=== PATIENT | male | born 1945 | race Caucasian/White ===

== ENCOUNTER 2020-02-09 11:15 | Inpatient (IN) | payer OTHER ==
--- NOTE | 2020-02-09 11:46 | RAD ---
Exam:3 views left foot HISTORY: Pain. First digit is turning black. COMPARISON: None FINDINGS: Lisfranc alignment is maintained. Joint spaces are preserved. No fracture, cortical irregul arity or radiopaque foreign body. Evaluation of the soft tissues is limited due to overlying sock with radiopaque densities. There is soft tissue swelling. No obvious subcutaneous emphysema. IMPRESSION: 1. No fracture 2. No radiographic evidence of osteomyelitis. 3. There is soft tissue swelling in the midfoot. Correlate for cellulitis.
[2020-02-09 12:06] LABS: #Eosinphils 0.1 thou/uL (0.0-0.7); #Lymphocytes 1.4 thou/uL (1.20-3.40); #Monocytes 0.8 thou/uL (0.11-0.59); %Basophils 0.3 % (0.0-1.0); %Eosinophils 1.4 % (0.0-10.0); %Lymphocytes 16.8 % (21.0-51.0); %Monocytes 9.6 % (0.0-10.0); %Neutrophils 71.8 % (42.0-75.0); Hemoglobin 9.6 g/dL (14.0-18.0); Mean Corpuscular HGB CONC 32.4 g/dL (32.0-36.0); Mean Corpuscular Volume 92.5 fL (78.0-98.0); Mean Platelet Volume 8.3 fL (7.4-10.4); Platelet Count 181 thou/uL (130-400); RBC Distribution Width 14.4 % (11.5-14.5); White Blood Cell (WBC) Count 8.4 thou/uL (4.8-10.8)
[2020-02-09 12:28] LABS: ALT (SGPT) 18 U/L (8-55); AST (SGOT) 18 U/L (5-34); Albumin 3.2 g/dL (3.4-4.8); Alkaline Phosphatase 73 U/L (40-110); Anion Gap 14 mmol/L (10-20); BUN (Urea Nitrogen) 51 mg/dL (8.4-25.7); Bilirubin, Total 0.6 mg/dL (0.2-1.2); Calc. Creatinine Clearance 0 mL/min (70-130); Calcium 8.3 mg/dL (7.8-10.44); Carbon Dioxide 25 mmol/L (23-31); Chloride 106 mmol/L (98-107); Globulin 3.5 g/dL (2.4-3.5); Glucose 121 mg/dL (83-110); Potassium 4.2 mmol/L (3.5-5.1); Protein, Total 6.7 g/dL (5.8-8.1); Sodium 141 mmol/L (136-145)
--- NOTE | 2020-02-09 13:34 | ULT ---
LEFT LOWER EXTREMITY DOPPLER VENOUS ULTRASOUND PROVIDED CLINICAL HISTORY: Left leg pain, redness and edema TECHNIQUE: Grayscale and color Doppler sonography with spectral analysis was performed of the left common femora l, femoral, popliteal, posterior tibial, greater saphenous and profunda femoral veins. FINDINGS: There is normal compression, flow and augmentation seen within the deep venous structures o f the left lower extremity. There is soft tissue edema in the left foreleg. IMPRESSION: No sonographic evidence for left lower extremity deep venous thrombosis.
[2020-02-09] MEDS ORDERED: Clindamycin/D5W 900 mg/50 ml Premix Bag ONE (13:46)
[2020-02-09] MEDS ORDERED: HYDROcodone/Acetaminophen 5/325 mg Tablet ONE (16:54)
[2020-02-09] MEDS ORDERED: Ondansetron ODT 4 MG TAB SL PRN (23:00)
[2020-02-09] MEDS ORDERED: Acetaminophen 325 MG TAB PO PRN (23:00)
[2020-02-09] MEDS ORDERED: Ondansetron PF 4 MG/2 ML Vial IVP PRN (23:00)
[2020-02-09] MEDS ORDERED: Dextrose 5% in Water 1,000 ML IV PRN (23:23)
[2020-02-09] MEDS ORDERED: hydrALAZINE 20 MG/ML VIAL SLOW IVP PRN (23:23)
[2020-02-09] MEDS ORDERED: Labetalol HCl 100 MG/20 ML VIAL SLOW IVP PRN (23:23)
[2020-02-09] MEDS ORDERED: Dextrose 50% Abboject 50 ML SYRINGE SLOW IVP PRN (23:23)
[2020-02-10 00:16] VITALS: BMI 31.6
--- NOTE | 2020-02-10 00:43 | PDOC.HHP ---
Hospitalist HPI - History of Present Illness History of Present Illness: ADMISSION DATE: 02/09/2020 TIME OF ASSESSMENT: 1900 PRIMARY CARE PHYSICIAN: SYBIL CHIEF COMPLAINT: Black toe HPI: Patient is a 74-year-old male past medical history significant for dementia, CKD stage IV, diabetes mellitus type 2. He presents to the ER today after having increasing pain in the left foot and lower extremity over the past 2 to 3 days. Him and his both deny any injury or falls. They also state that his toenail is black underneath it and did not hit his foot on anything. They just noticed the change in color of his toenail today. He is having pain with movement and palpation. He denies any numbness. The states that when they do elevate the leg it helps slightly with the swelling. Patient and both deny fever, chest pain, shortness of breath, injury or trauma. ED COURSE: Vital Signs: Blood pressure 135/112, pulse 70, respiratory rate 14, temp 98.0 oral, pain 7, O2 saturation 100% on room air Today in the ER they completed lab work, venous ultrasound of the left lower extremity, and foot x-ray 3 view. PAST MEDICAL HISTORY: Normal pressure hydrocephalus, atrial fibrillation, diabetes mellitus type 2, hyperlipidemia, hypertension, dementia, TIA, stage IV CKD PAST SURGICAL HISTORY: Neuro shunt SOCIAL HISTORY: Patient lives at home with his . He is able to walk for short periods of time but uses a wheelchair for longer distance. They deny any alcohol, drug, tobacco use. FAMILY HISTORY: Mother with Alzheimer's ALLERGIES: Amlodipine CURRENT MEDICATIONS: Atorvastatin 80 mg once a day Furosemide 20 mg once a day Glipizide 5 mg twice a day Clonidine 0.1 mg twice a day Ferrous sulfate 325 mg once a day Finasteride 5 mg once a day Eliquis 5 mg twice a day Myrbetriq 25 mg once a day Pramipexole twice a day Divalproex 125 mg twice a day Hospitalist ROS - Review of Systems Skin: reports: other (redness and warmth to left leg) All other systems reviewed; all pertinent +/- noted in HPI/Subj - Exam General Appearance: NAD, awake alert ENT: dry oral mucosa Heart: no murmur, no rubs, irregular Respiratory: CTAB, no wheezes, no rales, no ronchi, normal chest expansion Gastrointestinal: soft, non-tender, non-distended, normal bowel sounds Extremities: 1+ LE edema (RLE), 2+ LE edema (LLE) Extremities - other findings: subungal hematoma to left great toe Skin - other findings: Warm and erythematous to left anterior lower extremity Neurological: normal sensation to touch Musculoskeletal: normal tone, no muscle wasting Psychiatric: oriented to person, oriented to time Hospitalist Results - Labs Result Diagrams: 02/09/20 11:48 02/09/20 11:48 Lab results: WBC 8.4 thou/uL (4.8-10.8) 02/09/20 11:48 Hgb 9.6 g/dL (14.0-18.0) L 02/09/20 11:48 Hct 29.6 % (42.0-52.0) L 02/09/20 11:48 MCV 92.5 fL (78.0-98.0) 02/09/20 11:48 Plt Count 181 thou/uL (130-400) 02/09/20 11:48 Neutrophils % 71.8 % (42.0-75.0) 02/09/20 11:48 Sodium 141 mmol/L (136-145) 02/09/20 11:48 Potassium 4.2 mmol/L (3.5-5.1) 02/09/20 11:48 Chloride 106 mmol/L (98-107) 02/09/20 11:48 Carbon Dioxide 25 mmol/L (23-31) 02/09/20 11:48 BUN 51 mg/dL (8.4-25.7) H 02/09/20 11:48 Creatinine 3.29 mg/dL (0.7-1.3) H 02/09/20 11:48 Glucose 121 mg/dL (83-110) H 02/09/20 11:48 Calcium 8.3 mg/dL (7.8-10.44) 02/09/20 11:48 Total Bilirubin 0.6 mg/dL (0.2-1.2) 02/09/20 11:48 AST 18 U/L (5-34) 02/09/20 11:48 ALT 18 U/L (8-55) 02/09/20 11:48 Alkaline Phosphatase 73 U/L (40-110) 02/09/20 11:48 Serum Total Protein 6.7 g/dL (5.8-8.1) 02/09/20 11:48 Albumin 3.2 g/dL (3.4-4.8) L 02/09/20 11:48 - Radiology Interpretation Other Status: report reviewed by me Additional Comment: 3 view foot xray- left IMPRESSION: 1. No fracture 2. No radiographic evidence of osteomyelitis. 3. There is soft tissue swelling in the midfoot. Correlate for cellulitis. US - venous Status: report reviewed by me Additional Comment: IMPRESSION: No sonographic evidence for left lower extremity deep venous thrombosis. Hospitalist H&P A/P - Plan Plan: Cellulitis of the left lower extremity Await blood culture results Continue IV antibiotics follow vital signs for fever and lab work in a.m. Hypertension Restart home medications once reconciled As needed antihypertensives available if necessary Diabetes mellitus type 2 Monitor Accu-Cheks AC at bedtime Mild sliding scale insulin Atrial fibrillation Continue Eliquis CKD Stage 4 Avoid nephrotoxic medications GFR 18 currently Anemia Monitor labs in AM, see if any further decrease in H&H No known bleeding at this time Hyperlipidemia Continue home medications once reconciled Dementia volunteering to stay at bedside to help keep patient oriented Hopefully able to minimize hospitalization to avoid increased confusion VTE prophylaxispatient currently on Eliquis CODE STATUS: Full Surrogate decision-maker is his , Patrica Snyder
[2020-02-10] MEDS: Clindamycin/D5W 900 MG in Premix Bag 1 BAG IVPB SCH ×4 (00:56→23:20)
[2020-02-10 07:05] LABS: #Eosinphils 0.2 thou/uL (0.0-0.7); #Lymphocytes 1.4 thou/uL (1.20-3.40); #Monocytes 0.7 thou/uL (0.11-0.59); #Neutrophils 3.6 thou/uL (1.40-6.50); %Basophils 0.1 % (0.0-1.0); %Eosinophils 3.3 % (0.0-10.0); %Lymphocytes 23.2 % (21.0-51.0); %Monocytes 12.6 % (0.0-10.0); %Neutrophils 60.9 % (42.0-75.0); Hemoglobin 8.9 g/dL (14.0-18.0); Mean Corpuscular HGB CONC 32.5 g/dL (32.0-36.0); Mean Corpuscular Volume 92.1 fL (78.0-98.0); Mean Platelet Volume 8.6 fL (7.4-10.4); Platelet Count 173 thou/uL (130-400); RBC Distribution Width 14.2 % (11.5-14.5); Red Blood Cell (RBC) Count 2.95 mill/uL (4.70-6.10); White Blood Cell (WBC) Count 5.9 thou/uL (4.8-10.8)
[2020-02-10 07:22] LABS: Anion Gap 13 mmol/L (10-20); BUN (Urea Nitrogen) 50 mg/dL (8.4-25.7); Calc. Creatinine Clearance 28 mL/min (70-130); Calcium 7.9 mg/dL (7.8-10.44); Carbon Dioxide 25 mmol/L (23-31); Chloride 107 mmol/L (98-107); Glucose 100 mg/dL (83-110); Potassium 4.1 mmol/L (3.5-5.1); Sodium 141 mmol/L (136-145)
[2020-02-10 14:03] LABS: SARS-CoV-2 MS2 Positive; SARS-CoV-2 N Gene Negative; SARS-CoV-2 S Gene Negative; SARS-CoV-2 by NAA Not Detected (NotDetected); SARS-CoV-2 orf1ab Negative
--- NOTE | 2020-02-10 16:58 | ULT ---
Arterial duplex sonogram bilateral lower extremity HISTORY: Leg pain. Vascular disease. FINDINGS: Good color and spectral Doppler flow within each common femoral and deep femoral, femoral, popliteal, anterior tibial, posterior tibial, and dorsalis pedis arteries. No abnormally elevated peak systolic velocities. Dampened pulsatility with monophasic flow is seen within the right anterior tibial and dorsalis pedis arteries and within the mid to distal left femoral artery, popliteal artery, and lower leg arteries. IMPRESSION : Good arterial flow to each lower leg. While no elevated velocities or focal stenoses are directly vis ualized, dampened pulsatilities of the left leg below the level of the mid femoral artery suggest possibility of a significant stenosis. No evidence of large/medial vessel disease on the right.
--- NOTE | 2020-02-10 17:24 | PDOC.HOSPP ---
- Subjective Encounter Date: 02/10/20 Encounter Time: 10:00 Subjective: Patient seen for follow-up regarding lower extremity cellulitis. Patient is unable to provide good history. - Objective Vital Signs & Weight: Vital Signs (12 hours) Temp Pulse Resp BP Pulse Ox 02/10/20 08:00 96 02/10/20 07:30 97.6 F 66 18 146/82 H 96 Weight Weight 201 lb 11.2 oz I&O: 02/09/20 02/10/20 02/11/20 06:59 06:59 06:59 Intake Total 300 480 Balance 300 480 Result Diagrams: 02/10/20 06:15 02/10/20 06:15 Additional Labs: Accuchecks 02/10/20 02/10/20 02/10/20 16:51 11:40 05:46 POC Glucose 170 H 195 H 108 H 02/10/20 02/10/20 01:11 00:40 POC Glucose 129 H 85 I reviewed patient's labs and MAR Hospitalist ROS - Review of Systems ROS unobtainable: due to mental status - Medication Medications: Active Medications Generic Name Dose Route Start Last Admin Trade Name Freq PRN Reason Stop Dose Admin Clindamycin Phosphate/Dextrose 50 mls @ 100 mls/hr 02/09/20 23:59 02/10/20 16:00 900 mg/ Device IVPB 50 mls 0800,1600,2359 ADWOA Administration - Exam General Appearance: awake alert Eye: anicteric sclera ENT: moist mucosa Neck: supple Heart: RRR Respiratory: CTAB Extremities - other findings: Bruising under the left great toenail Skin: no rashes Psychiatric: normal affect, normal behavior Hosp A/P - Plan -Assessment/plan Cellulitis of the left lower extremity Patient is on IV clindamycin. Does not appear to be cellulitis as such. Check arterial Dopplers to evaluate for arterial insufficiency. Hypertension Monitor vital signs and titrate antihypertensives as needed. Diabetes mellitus type 2 Continue Accu-Cheks and insulin sliding scale. Atrial fibrillation Continue apixaban CKD Stage 4 Stable Hyperlipidemia Continue home medications once reconciled Dementia
[2020-02-11 07:47] LABS: #Eosinphils 0.2 thou/uL (0.0-0.7); #Lymphocytes 1.3 thou/uL (1.20-3.40); #Monocytes 0.8 thou/uL (0.11-0.59); #Neutrophils 4.6 thou/uL (1.40-6.50); %Basophils 0.2 % (0.0-1.0); %Lymphocytes 19.2 % (21.0-51.0); %Neutrophils 66.6 % (42.0-75.0); Hemoglobin 8.8 g/dL (14.0-18.0); Mean Corpuscular Hemoglobin 30.3 pg (27.0-31.0); Mean Corpuscular Volume 91.7 fL (78.0-98.0); Mean Platelet Volume 8.4 fL (7.4-10.4); Platelet Count 184 thou/uL (130-400); RBC Distribution Width 14.4 % (11.5-14.5); Red Blood Cell (RBC) Count 2.91 mill/uL (4.70-6.10); White Blood Cell (WBC) Count 6.9 thou/uL (4.8-10.8)
[2020-02-11 07:53] LABS: Anion Gap 15 mmol/L (10-20); BUN (Urea Nitrogen) 52 mg/dL (8.4-25.7); Calc. Creatinine Clearance 28 mL/min (70-130); Calcium 7.9 mg/dL (7.8-10.44); Carbon Dioxide 23 mmol/L (23-31); Chloride 108 mmol/L (98-107); Glucose 99 mg/dL (83-110); Potassium 4.3 mmol/L (3.5-5.1); Sodium 142 mmol/L (136-145)
[2020-02-11] MEDS: Clindamycin/D5W 900 MG in Premix Bag 1 BAG IVPB SCH ×2 (08:40→15:59)
--- NOTE | 2020-02-11 13:09 | RAD ---
XR Knee Rt 4 View STANDARD History: Pain and swelling Comparison: None. Findings: Mild prepatellar and infrapatellar superficial soft tissue swelling. No acute fracture or m alalignment. Low-grade medial compartment joint space narrowing. Small osteophyte along the lateral margin medial femoral condyle. Impression: Prepatellar and infrapatellar anterior soft tissue swelling can be seen with bursitis or cellulitis. No underlying fracture, malalignment, nor significant joint effusion.
--- NOTE | 2020-02-11 13:10 | CON ---
DATE OF CONSULTATION: 02/11/2020 REQUESTING PHYSICIAN: Dr. Amato. CHIEF COMPLAINT: Left foot pain and toe discoloration. HISTORY OF PRESENT ILLNESS: The patient is a 74-year-old man with a dementia. He was brought to the emergency room with complaints of increasing pain in his left foot over the previous 2 to 3 days. His just recently noticed some dark discoloration in the nail bed of the great toe and they do not recall any trauma that could account for it. PAST MEDICAL HISTORY: Significant for; 1. Atrial fibrillation. 2. Diabetes mellitus. 3. Hypertension. 4. Normal-pressure hydrocephalus. 5. Stage 4 chronic kidney disease. HOME MEDICATIONS: 1. Lipitor. 2. Lasix. 3. Glipizide. 4. Clonidine. 5. Ferrous sulfate. 6. Finasteride. 7. Eliquis. 8. Myrbetriq. 9. Pramipexole. 10. Depakote. Although, Norvasc is listed as one of his allergies. SOCIAL HISTORY: The patient does not currently smoke. REVIEW OF SYSTEMS: Unobtainable. PHYSICAL EXAMINATION: On exam, he is calm and cooperative, but does not appear to have particularly useful insights. He has been afebrile throughout his hospital course. His heart rate is in the 60s to 70s, blood pressure ranging from about 160 to about 200/95 to 110. He has easily palpable femoral pulses bilaterally. On the left foot, he has trace edema and an easily palpable dorsalis pedis pulse with some grayish black discoloration under the nail of the great toe. Otherwise, the foot is warm and pink with good capillary refill. There is some red discoloration overlying the right kneecap that is tender to touch. He has 3+ edema in his right foot. When that edema is pressed out, he has a palpable dorsalis pedis pulse. He had a vascular ultrasound that showed no DVT and an arterial ultrasound that had no step-up in velocity, but the interpretation was that somewhat suggestive of femoral artery disease. IMPRESSION AND PLAN: The patient has palpable pedal pulses. The discoloration underneath his nail bed is not consistent with what was seen with dry gangrene due to vascular disease. It could be trauma, it could even be something far more uncommon such as subungual melanoma. I suspect that this is probably a traumatic issue and he and his just simply were not aware of whatever sort of trauma that accounted for it. Certainly, his vascular supply is adequate that he does not need any further vascular workup or intervention. Job ID: [id number]
[2020-02-11] MEDS: Ferrous Sulfate 325 MG TAB PO SCH ×2 (15:59→20:53)
[2020-02-11] MEDS: glipiZIDE 5 MG TAB PO SCH (15:59)
--- NOTE | 2020-02-11 17:48 | PDOC.HOSPP ---
- Subjective Encounter Date: 02/11/20 Encounter Time: 11:30 Subjective: Patient seen for follow-up for knee pain. Complains of pain and swelling in the right knee, unable to describe it further. - Objective Vital Signs & Weight: Vital Signs (12 hours) Temp Pulse Resp BP Pulse Ox 02/11/20 17:19 156/93 H 02/11/20 16:10 63 16 181/107 H 96 02/11/20 09:00 161/94 H 02/11/20 08:55 98.0 F 63 20 206/57 H 97 02/11/20 07:34 98.2 F 65 18 167/108 H 93 L Weight Weight 201 lb 11.2 oz I&O: 02/10/20 02/11/20 02/12/20 06:59 06:59 06:59 Intake Total 300 1210 Balance 300 1210 Result Diagrams: 02/11/20 06:56 02/11/20 06:56 Additional Labs: Accuchecks 02/11/20 02/10/20 06:44 20:19 POC Glucose 105 H 137 H Labs and MAR reviewed by sc Hospitalist ROS - Review of Systems ROS unobtainable: due to mental status - Medication Medications: Active Medications Generic Name Dose Route Start Last Admin Trade Name Freq PRN Reason Stop Dose Admin Ferrous Sulfate 325 mg 02/11/20 15:00 02/11/20 15:59 Ferrous Sulfate 325 Mg Tab PO 325 mg TID ADWOA Administration Glipizide 5 mg 02/11/20 16:30 02/11/20 15:59 Glipizide 5 Mg Tab PO 5 mg BID-AC ADWOA Administration Clindamycin Phosphate/Dextrose 50 mls @ 100 mls/hr 02/09/20 23:59 02/11/20 15:59 900 mg/ Device IVPB 50 mls 0800,1600,2359 ADWOA Administration - Exam General Appearance: awake alert Eye: anicteric sclera ENT: moist mucosa Neck: supple Heart: RRR Respiratory: CTAB Gastrointestinal: soft, non-tender Extremities - other findings: Right knee swelling and tenderness Skin: no rashes Psychiatric: normal affect, normal behavior Hosp A/P - Plan -Assessment/plan Right knee pain Consult orthopedic surgery for possible bursitis Hypertension Increase clonidine to 0.2 mg 2 times a day. Diabetes mellitus type 2 Continue Accu-Cheks and insulin sliding scale. Atrial fibrillation Patient is a apixaban CKD Stage 4 Stable Hyperlipidemia Continue home medications once reconciled Dementia Cellulitis of the left lower extremity Patient does not appear to have cellulitis, discontinue clindamycin. Ambulate patient Appreciate CV surgery input regarding vascular stenosis.
[2020-02-11] MEDS: Atorvastatin Calcium 40 MG TAB PO SCH (20:54)
[2020-02-11] MEDS: cloNIDine 0.2 MG TAB PO SCH (20:54)
[2020-02-11] MEDS: HumaLOG 300 UNITS/3 ML VIAL SC PRN (20:56)
[2020-02-11] MEDS ORDERED: cloNIDine 0.1 MG TAB PO SCH (21:00)
[2020-02-11] MEDS: Pramipexole Di-HCl 0.25 MG TAB PO SCH (21:06)
[2020-02-11] MEDS: HYDROcodone/Acetaminophen 5/325 mg Tablet PO PRN (22:36)
[2020-02-12] MEDS: HYDROcodone/Acetaminophen 5/325 mg Tablet PO PRN ×2 (05:38→12:23)
[2020-02-12 07:24] LABS: #Eosinphils 0.2 thou/uL (0.0-0.7); #Lymphocytes 1.3 thou/uL (1.20-3.40); #Monocytes 0.6 thou/uL (0.11-0.59); %Basophils 0.1 % (0.0-1.0); %Eosinophils 3.4 % (0.0-10.0); %Lymphocytes 20.8 % (21.0-51.0); %Monocytes 9.9 % (0.0-10.0); %Neutrophils 65.8 % (42.0-75.0); Hemoglobin 8.7 g/dL (14.0-18.0); Mean Corpuscular HGB CONC 32.2 g/dL (32.0-36.0); Mean Corpuscular Hemoglobin 29.5 pg (27.0-31.0); Mean Corpuscular Volume 91.5 fL (78.0-98.0); Platelet Count 198 thou/uL (130-400); RBC Distribution Width 14.3 % (11.5-14.5); Red Blood Cell (RBC) Count 2.94 mill/uL (4.70-6.10)
[2020-02-12 07:42] LABS: Anion Gap 13 mmol/L (10-20); BUN (Urea Nitrogen) 56 mg/dL (8.4-25.7); Calc. Creatinine Clearance 28 mL/min (70-130); Calcium 7.9 mg/dL (7.8-10.44); Carbon Dioxide 25 mmol/L (23-31); Chloride 107 mmol/L (98-107); Glucose 106 mg/dL (83-110); Potassium 4.4 mmol/L (3.5-5.1); Sodium 141 mmol/L (136-145)
[2020-02-12] MEDS: Furosemide 20 MG TAB PO SCH (09:09)
[2020-02-12] MEDS: glipiZIDE 5 MG TAB PO SCH ×2 (09:09→15:13)
[2020-02-12] MEDS: cloNIDine 0.2 MG TAB PO SCH ×2 (09:09→20:27)
[2020-02-12] MEDS: Ferrous Sulfate 325 MG TAB PO SCH ×3 (09:09→20:27)
[2020-02-12] MEDS: Finasteride 5 MG TAB PO SCH (09:10)
[2020-02-12] MEDS: Pramipexole Di-HCl 0.25 MG TAB PO SCH ×2 (09:13→20:27)
[2020-02-12] MEDS ORDERED: Colchicine 0.6 MG TAB PO SCH (12:00)
[2020-02-12] MEDS: HumaLOG 300 UNITS/3 ML VIAL SC PRN (12:22)
--- NOTE | 2020-02-12 16:20 | PDOC.HOSPP ---
- Subjective Encounter Date: 02/12/20 Encounter Time: 10:30 Subjective: Patient up in bed no complaints. - Objective Vital Signs & Weight: Vital Signs (12 hours) Temp Pulse Resp BP BP Pulse Ox 02/12/20 15:44 98.3 F 44 L 16 134/71 95 02/12/20 12:15 62 02/12/20 11:57 98.3 F 45 L 14 121/75 95 02/12/20 09:15 94 L 02/12/20 09:09 148/90 H 02/12/20 07:07 97.5 F L 64 16 148/90 H 94 L 02/12/20 04:45 97.9 F 60 18 157/100 H 94 L Weight Weight 201 lb 11.2 oz I&O: 02/11/20 02/12/20 02/13/20 06:59 06:59 06:59 Intake Total 1210 1240 Balance 1210 1240 Result Diagrams: 02/12/20 06:57 02/12/20 06:57 Additional Labs: Accuchecks 02/12/20 02/12/20 02/12/20 15:43 12:03 05:35 POC Glucose 127 H 161 H 115 H 02/11/20 02/11/20 19:24 16:44 POC Glucose 206 H 136 H Hospitalist ROS - Review of Systems Cardiovascular: denies: chest pain, palpitations, orthopnea, paroxysmal noc. dyspnea, edema, light headedness, other Gastrointestinal: denies: nausea, vomiting, abdominal pain, diarrhea, constipation, melena, hematochezia, other Genitourinary: denies: dysuria, frequency, incontinence, hematuria, retention, other - Medication Medications: Active Medications Generic Name Dose Route Start Last Admin Trade Name Freq PRN Reason Stop Dose Admin Hydrocodone Bitart/Acetaminophen 1 tab 02/09/20 23:23 02/12/20 12:23 Hydrocodone/Acetaminophen 5/325 Mg Tablet PO 1 tab Q4H PRN Administration Moderate Pain (4-6) Atorvastatin Calcium 80 mg 02/11/20 21:00 02/11/20 20:54 Atorvastatin Calcium 40 Mg Tab PO 80 mg HS ADWOA Administration Clonidine 0.2 mg 02/11/20 21:00 02/12/20 09:09 Clonidine 0.2 Mg Tab PO 0.2 mg BID ADWOA Administration Ferrous Sulfate 325 mg 02/11/20 15:00 02/12/20 15:14 Ferrous Sulfate 325 Mg Tab PO 325 mg TID ADWOA Administration Finasteride 5 mg 02/12/20 09:00 02/12/20 09:10 Finasteride 5 Mg Tab PO 5 mg DAILY ADWOA Administration Furosemide 20 mg 02/12/20 09:00 02/12/20 09:09 Furosemide 20 Mg Tab PO 20 mg DAILY ADWOA Administration Glipizide 5 mg 02/11/20 16:30 02/12/20 15:13 Glipizide 5 Mg Tab PO 5 mg BID-AC ADWOA Administration Hydralazine HCl 10 mg 02/09/20 23:23 02/11/20 20:53 Hydralazine 20 Mg/Ml Vial SLOW IVP 10 mg Q4H PRN Administration SBP > 180 and HR < 70 Insulin Human Lispro 0 units 02/09/20 23:23 02/12/20 12:22 Humalog 300 Units/3 Ml Vial SC 2 unit .MILD SLIDING SCALE PRN Administration Mild Correctional Scale Insulin Human Lispro 0 units 02/09/20 23:23 02/11/20 20:56 Humalog 300 Units/3 Ml Vial SC 2 unit .BEDTIME SLIDING SC PRN Administration Bedtime Correctional Scale Mirabegron 25 mg 02/12/20 09:00 02/12/20 09:13 Mirabegron Er 25 Mg Tab PO 25 mg DAILY ADWOA Administration Pramipexole Dihydrochloride 0.25 mg 02/11/20 21:00 02/12/20 09:13 Pramipexole Di-Hcl 0.25 Mg Tab PO 0.25 mg BID ADWOA Administration - Exam Heart: negative: RRR, no murmur, no gallops, no rubs, normal peripheral pulses, irregular, diminshed peripheral pulses, murmur present, II/IV, III/IV Respiratory: negative: CTAB, no wheezes, no rales, no ronchi, normal chest expansion, no tachypnea, normal percussion, rales, rhonchi, tachypneic, wheezes Gastrointestinal: negative: soft, non-tender, non-distended, normal bowel sounds, no palpable masses, no hepatomegaly, no splenomegaly, no bruit, no guarding, no rigidity, tender to palpation, distended, diminished bowl sounds, voluntary guarding Extremities - other findings: Right knee appears mild erythema noted Hosp A/P - Plan Right knee pain Consult orthopedic surgery for possible bursitis Hypertension Increase clonidine to 0.2 mg 2 times a day. Diabetes mellitus type 2 Continue Accu-Cheks and insulin sliding scale. Atrial fibrillation Patient is a apixaban CKD Stage 4 Stable Hyperlipidemia Continue home medications once reconciled Dementia Cellulitis of the left lower extremity Patient does not appear to have cellulitis, discontinue clindamycin. Ambulate patient Appreciate CV surgery input regarding vascular stenosis. 02/11 patient's uric acid is elevated. Ortho indicated we will continue to monitor the right knee since there is no fluid in the joint. I will start him on low-dose prednisone and also give 1 dose of colchicine.
--- NOTE | 2020-02-12 16:22 | CON ---
DATE OF CONSULTATION: 02/12/2020 This is Heydi Marcus PA-C dictating a report for Shivam Camp MD. REQUESTING PHYSICIAN: [facility]. REASON FOR CONSULTATION: Right knee erythema. HISTORY OF PRESENT ILLNESS: This is a 74-year-old male who was admitted on February 08 for right lower extremity cellulitis. He has been treated with IV antibiotics and over the course of his hospital stay, he has developed some localized erythema to the anterior aspect of the right knee. We have been consulted for this reason. The patient is A and O x2 with dementia. Majority of his history has been obtained from records and [facility] physicians. He tells me the knee has been red for the last 2 days. The Medicine physicians tell me his knee has been red for the last 24 hours. The patient states that he has not walked ever since he has been here in the hospital. He does report some pain in the right knee. PAST MEDICAL HISTORY: Significant for normal-pressure hydrocephalus; atrial fibrillation; diabetes mellitus, type 2; hyperlipidemia; hypertension; dementia; TIA; stage 4 chronic kidney disease. PAST SURGICAL HISTORY: Neuro shunt. SOCIAL HISTORY: The patient lives at home with his . He is able to walk for short periods of time, but uses a wheelchair for longer distances. He denies any alcohol, drug, or tobacco use. ALLERGIES: INCLUDE, AMLODIPINE. REVIEW OF SYSTEMS: Ten-point review of systems conducted, but somewhat limited secondary to patient's dementia. PHYSICAL EXAMINATION: VITAL SIGNS: Currently, temperature 98.3, pulse of 44, respiratory rate of 16, O2 saturation 95 on room air, blood pressure 134/71. GENERAL: The patient is awake and alert. He is pleasant and cooperative. HEENT: Head is normocephalic, atraumatic. NECK: Supple. Trachea midline. LUNGS: Breathing is nonlabored. EXTREMITIES: Evaluation of the right lower extremity shows some erythema overlying the anterior aspect of the patella. There is no palpable fluid collection in this area. No palpable bursa fluid collection in the infrapatellar region. No palpable joint fluid in the knee joint itself. Range of motion evaluation is somewhat limited secondary to poor cooperation. The patient does slightly flex and extend the knee of approximately 15 to 20 degrees. This is comparable to the contralateral side. Passive range of motion evaluation shows discomfort with passive range of motion, however, this is not exquisitely uncomfortable. This was performed several times throughout my evaluation and there was no consistency on the level of pain reproduced with passive range of motion. He is able to wiggle his toes. Evaluation of the left lower extremity shows poor cooperation with less than 20 degrees of flexion and extension actively. Passive range of motion appears somewhat uncomfortable. No erythema. No palpable fluid collection on the left knee. RADIOGRAPHIC FINDINGS: Radiographic imaging performed today including views of the right knee demonstrate no acute fracture. No joint effusion. There is some soft tissue swelling in the tissues in the prepatellar region. Impression as previously stated. ASSESSMENT: Prepatellar cellulitis on the right knee without obvious fluid collection. PLAN: At this time, the patient does have some erythema overlying the anterior aspect of his knee, however, there is no appreciable joint fluid or prepatellar fluid palpable. No abscess palpable. At this point, I see no reason for surgical intervention. I have discussed this case with the [facility] doctors. There is a possibility of gout or pseudogout. They are starting treatment for this. We will keep following along. We will go ahead and make him n.p.o. after midnight. Plan to recheck in the morning in case there is something that is drainable, we can take him to the OR for tomorrow. Again, at this time, no drainable abscess. We will continue to follow along and recheck in the a.m. Job ID: [id number]
[2020-02-12] MEDS ORDERED: predniSONE 20 MG TAB PO SCH (17:15)
[2020-02-12] MEDS: Atorvastatin Calcium 40 MG TAB PO SCH (20:26)
[2020-02-12] MEDS: Divalproex Sodium 125 mg Sprinkle Capsule PO SCH (20:27)
[2020-02-12] MEDS: Famotidine 20 MG TAB PO SCH (20:27)
[2020-02-13 06:54] LABS: Anion Gap 16 mmol/L (10-20); BUN (Urea Nitrogen) 67 mg/dL (8.4-25.7); Calc. Creatinine Clearance 26 mL/min (70-130); Calcium 8.3 mg/dL (7.8-10.44); Carbon Dioxide 24 mmol/L (23-31); Chloride 104 mmol/L (98-107); Glucose 259 mg/dL (83-110); Potassium 4.9 mmol/L (3.5-5.1); Sodium 139 mmol/L (136-145)
[2020-02-13] MEDS: predniSONE 20 MG TAB PO SCH ×2 (08:15→09:40)
[2020-02-13] MEDS: glipiZIDE 5 MG TAB PO SCH ×2 (08:15→16:33)
[2020-02-13] MEDS: Finasteride 5 MG TAB PO SCH (08:18)
[2020-02-13] MEDS: Furosemide 20 MG TAB PO SCH (08:18)
[2020-02-13] MEDS: cloNIDine 0.2 MG TAB PO SCH (08:18)
[2020-02-13] MEDS: Famotidine 20 MG TAB PO SCH ×2 (08:18→21:28)
[2020-02-13] MEDS: Divalproex Sodium 125 mg Sprinkle Capsule PO SCH ×2 (09:40→21:28)
[2020-02-13] MEDS: Ferrous Sulfate 325 MG TAB PO SCH ×3 (09:40→21:28)
[2020-02-13] MEDS: Pramipexole Di-HCl 0.25 MG TAB PO SCH ×2 (09:41→21:29)
[2020-02-13] MEDS: HumaLOG 300 UNITS/3 ML VIAL SC PRN ×3 (12:37→21:41)
[2020-02-13] MEDS: HYDROcodone/Acetaminophen 5/325 mg Tablet PO PRN (14:18)
[2020-02-13] MEDS ORDERED: Haloperidol Lactate 5 MG/ML VIAL ONE (14:32)
[2020-02-13] MEDS ORDERED: Haloperidol Lactate 5 MG/ML VIAL IM SCH (15:15)
--- NOTE | 2020-02-13 16:54 | PDOC.HOSPP ---
- Subjective Encounter Date: 02/13/20 Encounter Time: 10:00 Subjective: Patient seen for follow-up regarding right knee pain. Could not complete review of systems because she is a poor historian. - Objective Vital Signs & Weight: Vital Signs (12 hours) Temp Pulse Resp BP BP Pulse Ox 02/13/20 15:54 97.7 F 52 L 15 185/91 H 97 02/13/20 11:37 97.4 F L 44 L 15 156/85 H 95 02/13/20 08:20 50 L 02/13/20 08:18 179/94 H 02/13/20 07:35 97 02/13/20 07:30 97.6 F 46 L 16 190/84 H 97 Weight Weight 201 lb 11.2 oz I&O: 02/12/20 02/13/20 02/14/20 06:59 06:59 06:59 Intake Total 1240 600 490 Balance 1240 600 490 Result Diagrams: 02/12/20 06:57 02/13/20 05:47 Additional Labs: Accuchecks 02/13/20 02/13/20 02/13/20 15:58 11:45 05:25 POC Glucose 281 H 249 H 246 H 02/12/20 20:17 POC Glucose 184 H Labs and MAR reviewed by me Hospitalist ROS - Review of Systems ROS unobtainable: due to mental status - Medication Medications: Active Medications Generic Name Dose Route Start Last Admin Trade Name Freq PRN Reason Stop Dose Admin Hydrocodone Bitart/Acetaminophen 1 tab 02/09/20 23:23 02/12/20 12:23 Hydrocodone/Acetaminophen 5/325 Mg Tablet PO 1 tab Q4H PRN Administration Moderate Pain (4-6) Atorvastatin Calcium 80 mg 02/11/20 21:00 02/12/20 20:26 Atorvastatin Calcium 40 Mg Tab PO 80 mg HS ADWOA Administration Clonidine 0.2 mg 02/11/20 21:00 02/13/20 08:18 Clonidine 0.2 Mg Tab PO 0.2 mg BID ADWOA Administration Divalproex Sodium 125 mg 02/12/20 21:00 02/13/20 09:40 Divalproex Sodium 125 Mg Sprinkle Capsule PO 125 mg BID ADWOA Administration Famotidine 20 mg 02/12/20 21:00 02/13/20 08:18 Famotidine 20 Mg Tab PO 20 mg BID ADWOA Administration Ferrous Sulfate 325 mg 02/11/20 15:00 02/13/20 14:17 Ferrous Sulfate 325 Mg Tab PO Not Given TID ADWOA Finasteride 5 mg 02/12/20 09:00 02/13/20 08:18 Finasteride 5 Mg Tab PO 5 mg DAILY [facility] Administration Furosemide 20 mg 02/12/20 09:00 02/13/20 08:18 Furosemide 20 Mg Tab PO 20 mg DAILY [facility]WOA Administration Glipizide 5 mg 02/11/20 16:30 02/13/20 16:33 Glipizide 5 Mg Tab PO Not Given BID-AC ADWOA Haloperidol Lactate 5 mg 02/13/20 15:15 02/13/20 15:08 Haloperidol Lactate 5 Mg/Ml Vial IM 02/13/20 17:00 Not Given NOW ADWOA Hydralazine HCl 10 mg 02/09/20 23:23 02/11/20 20:53 Hydralazine 20 Mg/Ml Vial SLOW IVP 10 mg Q4H PRN Administration SBP > 180 and HR < 70 Insulin Human Lispro 0 units 02/09/20 23:23 02/13/20 12:37 Humalog 300 Units/3 Ml Vial SC 3 unit .MILD SLIDING SCALE PRN Administration Mild Correctional Scale Insulin Human Lispro 0 units 02/09/20 23:23 02/11/20 20:56 Humalog 300 Units/3 Ml Vial SC 2 unit .BEDTIME SLIDING SC PRN Administration Bedtime Correctional Scale Mirabegron 25 mg 02/12/20 09:00 02/13/20 09:41 Mirabegron Er 25 Mg Tab PO 25 mg DAILY ADWOA Administration Pramipexole Dihydrochloride 0.25 mg 02/11/20 21:00 02/13/20 09:41 Pramipexole Di-Hcl 0.25 Mg Tab PO 0.25 mg BID ADWOA Administration Prednisone 40 mg 02/13/20 08:00 02/13/20 09:40 Prednisone 20 Mg Tab PO 02/17/20 08:00 40 mg QAM-WM ADWOA Administration - Exam General Appearance: awake alert Eye: anicteric sclera ENT: normocephalic atraumatic Neck: supple Heart: RRR Respiratory: CTAB, no wheezes Gastrointestinal: soft, non-tender Skin: no rashes Psychiatric: normal affect Hosp A/P - Plan -Assessment/plan Right knee pain Appreciate orthopedic surgery service input. Patient received colchicine. Hypertension Increase clonidine to 0.3 mg 2 times a day. Diabetes mellitus type 2 Continue Accu-Cheks and insulin sliding scale. Atrial fibrillation Patient is on apixaban CKD Stage 4 Stable Hyperlipidemia Continue statin. Dementia Cellulitis of the left lower extremity Ruled out, antibiotics have been discontinued. N. Inpatient rehab versus halfway facility.
[2020-02-13] MEDS: cloNIDine 0.3 MG TAB PO SCH (21:28)
[2020-02-13] MEDS: Atorvastatin Calcium 40 MG TAB PO SCH (21:28)
[2020-02-14] MEDS: HumaLOG 300 UNITS/3 ML VIAL SC PRN ×3 (05:53→21:59)
[2020-02-14] MEDS: cloNIDine 0.3 MG TAB PO SCH ×2 (10:23→21:55)
[2020-02-14] MEDS: glipiZIDE 5 MG TAB PO SCH ×2 (10:23→16:18)
[2020-02-14] MEDS: predniSONE 20 MG TAB PO SCH (10:23)
[2020-02-14] MEDS: Famotidine 20 MG TAB PO SCH ×2 (10:24→21:55)
[2020-02-14] MEDS: Finasteride 5 MG TAB PO SCH (10:24)
[2020-02-14] MEDS: Divalproex Sodium 125 mg Sprinkle Capsule PO SCH ×2 (10:24→21:55)
[2020-02-14] MEDS: Ferrous Sulfate 325 MG TAB PO SCH ×3 (10:24→21:56)
[2020-02-14] MEDS: Furosemide 20 MG TAB PO SCH (10:24)
[2020-02-14 11:13] LABS: #Lymphocytes 1.6 thou/uL (1.20-3.40); #Monocytes 0.8 thou/uL (0.11-0.59); #Neutrophils 7.6 thou/uL (1.40-6.50); %Basophils 0.3 % (0.0-1.0); %Eosinophils 0.4 % (0.0-10.0); %Lymphocytes 15.5 % (21.0-51.0); %Monocytes 7.7 % (0.0-10.0); Mean Corpuscular HGB CONC 32.7 g/dL (32.0-36.0); Mean Corpuscular Hemoglobin 29.8 pg (27.0-31.0); Mean Platelet Volume 8.6 fL (7.4-10.4); Platelet Count 247 thou/uL (130-400); RBC Distribution Width 14.2 % (11.5-14.5); Red Blood Cell (RBC) Count 3.03 mill/uL (4.70-6.10)
[2020-02-14 11:33] LABS: Anion Gap 16 mmol/L (10-20); BUN (Urea Nitrogen) 89 mg/dL (8.4-25.7); Calc. Creatinine Clearance 25 mL/min (70-130); Calcium 8.1 mg/dL (7.8-10.44); Carbon Dioxide 24 mmol/L (23-31); Chloride 103 mmol/L (98-107); Glucose 197 mg/dL (83-110); Potassium 4.1 mmol/L (3.5-5.1); Sodium 139 mmol/L (136-145)
[2020-02-14] MEDS: Pramipexole Di-HCl 0.25 MG TAB PO SCH (12:01)
--- NOTE | 2020-02-14 16:17 | PDOC.HOSPP ---
- Subjective Encounter Date: 02/14/20 Encounter Time: 14:30 Subjective: Pt seen for followup re:knee pain. Pain is better. - Objective Vital Signs & Weight: Vital Signs (12 hours) Temp Pulse Resp BP BP Pulse Ox 02/14/20 15:31 98.2 F 61 16 141/88 H 94 L 02/14/20 11:00 98.0 F 43 L 16 123/72 95 02/14/20 10:23 145/74 H 02/14/20 08:00 94 L 02/14/20 07:10 97.3 F L 42 L 16 145/74 H 94 L 02/14/20 05:00 46 L 18 165/79 H 94 L Weight Weight 201 lb 11.2 oz I&O: 02/13/20 02/14/20 02/15/20 06:59 06:59 06:59 Intake Total 600 490 Balance 600 490 Result Diagrams: 02/14/20 11:04 02/14/20 11:04 Additional Labs: Accuchecks 02/14/20 02/14/20 02/14/20 15:35 11:40 05:49 POC Glucose 258 H 198 H 359 H I reviewed labs and [facility] Hospitalist ROS - Review of Systems Respiratory: denies: cough, dry, shortness of breath, hemoptysis, SOB with excertion, pleuritic pain, sputum, wheezing Cardiovascular: denies: chest pain, palpitations, orthopnea, paroxysmal noc. dyspnea, edema, light headedness - Medication Medications: Active Medications Generic Name Dose Route Start Last Admin Trade Name Freq PRN Reason Stop Dose Admin Hydrocodone Bitart/Acetaminophen 1 tab 02/09/20 23:23 02/12/20 12:23 Hydrocodone/Acetaminophen 5/325 Mg Tablet PO 1 tab Q4H PRN Administration Moderate Pain (4-6) Atorvastatin Calcium 80 mg 02/11/20 21:00 02/13/20 21:28 Atorvastatin Calcium 40 Mg Tab PO 80 mg HS ADWOA Administration Clonidine 0.3 mg 02/13/20 21:00 02/14/20 10:23 Clonidine 0.3 Mg Tab PO 0.3 mg BID ADWOA Administration Divalproex Sodium 125 mg 02/12/20 21:00 02/14/20 10:24 Divalproex Sodium 125 Mg Sprinkle Capsule PO 125 mg BID ADWOA Administration Famotidine 20 mg 02/12/20 21:00 02/14/20 10:24 Famotidine 20 Mg Tab PO 20 mg BID ADWOA Administration Ferrous Sulfate 325 mg 02/11/20 15:00 02/14/20 10:24 Ferrous Sulfate 325 Mg Tab PO 325 mg TID ADWOA Administration Finasteride 5 mg 02/12/20 09:00 02/14/20 10:24 Finasteride 5 Mg Tab PO 5 mg DAILY ADWOA Administration Furosemide 20 mg 02/12/20 09:00 02/14/20 10:24 Furosemide 20 Mg Tab PO 20 mg DAILY ADWOA Administration Glipizide 5 mg 02/11/20 16:30 02/14/20 10:23 Glipizide 5 Mg Tab PO 5 mg BID-AC ADWOA Administration Hydralazine HCl 10 mg 02/09/20 23:23 02/11/20 20:53 Hydralazine 20 Mg/Ml Vial SLOW IVP 10 mg Q4H PRN Administration SBP > 180 and HR < 70 Insulin Human Lispro 0 units 02/09/20 23:23 02/14/20 05:53 Humalog 300 Units/3 Ml Vial SC 6 unit .MILD SLIDING SCALE PRN Administration Mild Correctional Scale Insulin Human Lispro 0 units 02/09/20 23:23 02/13/20 21:41 Humalog 300 Units/3 Ml Vial SC 5 unit .BEDTIME SLIDING SC PRN Administration Bedtime Correctional Scale Mirabegron 25 mg 02/12/20 09:00 02/14/20 10:31 Mirabegron Er 25 Mg Tab PO 25 mg DAILY ADWOA Administration Prednisone 40 mg 02/13/20 08:00 02/14/20 10:23 Prednisone 20 Mg Tab PO 02/17/20 08:00 40 mg QAM-WM ADOWA Administration - Exam General Appearance: awake alert Eye: anicteric sclera ENT: normocephalic atraumatic Neck: supple Heart: RRR Respiratory: CTAB Gastrointestinal: soft, non-tender Extremities: no edema Skin: no rashes Neurological: cranial nerve grossly intact Psychiatric: normal affect, normal behavior Hosp A/P - Plan -Assessment/plan Right knee pain Improved. Hypertension Continue clonidine 0.3 mg 2 times a day. Diabetes mellitus type 2 Continue Accu-Cheks and insulin sliding scale. Atrial fibrillation continue apixaban CKD Stage 4 Stable Hyperlipidemia Continue statin. Dementia Cellulitis of the left lower extremity Ruled out [facility]patient [facility]hab versus [facility].
[2020-02-14 17:49] LABS: Band 22 % (5-11); Hemoglobin 8.8 g/dL (14.0-18.0); Lymphocytes 6 % (21-51); MDiff Complete? YES; Mean Corpuscular HGB CONC 32.8 g/dL (32.0-36.0); Mean Corpuscular Hemoglobin 29.6 pg (27.0-31.0); Mean Corpuscular Volume 90.2 fL (78.0-98.0); Mean Platelet Volume 9.1 fL (7.4-10.4); Monocytes 1 % (0-10); Neutrophil 70 % (42-75); Ovalocytes SLIGHT = 2-5 cells (100X) (0-1/hpf); Platelet Count 245 thou/uL (130-400); Platelet Morphology Comment Appears Adequate; Polychromasia SLIGHT = 2-3 cells (100X) (0-2/hpf); RBC Distribution Width 14.3 % (11.5-14.5); Reactive Lymphocytes 1 % (0-10); Red Blood Cell (RBC) Count 2.96 mill/uL (4.70-6.10); Schistocytes SLIGHT = 2-5 cells (100X) (0-1/hpf); Target Cells SLIGHT = 2-5 cells (100X) (0-1/hpf); Tear Drops SLIGHT = 2-5 cells (100X) (0-1/hpf); White Blood Cell (WBC) Count 9.5 thou/uL (4.8-10.8)
[2020-02-14] MEDS: Apixaban 5 MG TAB PO SCH (21:54)
[2020-02-14] MEDS: Atorvastatin Calcium 40 MG TAB PO SCH (21:55)
[2020-02-14] MEDS: Pramipexole Di-HCl 0.125 MG TAB PO SCH (21:55)
[2020-02-15] MEDS: HumaLOG 300 UNITS/3 ML VIAL SC PRN ×3 (05:26→20:49)
[2020-02-15 06:12] LABS: #Lymphocytes 1.3 thou/uL (1.20-3.40); #Monocytes 0.5 thou/uL (0.11-0.59); #Neutrophils 6.6 thou/uL (1.40-6.50); %Basophils 0.3 % (0.0-1.0); %Eosinophils 0.5 % (0.0-10.0); %Lymphocytes 15.4 % (21.0-51.0); %Monocytes 5.8 % (0.0-10.0); %Neutrophils 78.1 % (42.0-75.0); Hemoglobin 8.8 g/dL (14.0-18.0); Mean Corpuscular HGB CONC 31.9 g/dL (32.0-36.0); Mean Corpuscular Hemoglobin 28.9 pg (27.0-31.0); Mean Corpuscular Volume 90.6 fL (78.0-98.0); Mean Platelet Volume 8.4 fL (7.4-10.4); Platelet Count 241 thou/uL (130-400); RBC Distribution Width 14.3 % (11.5-14.5); Red Blood Cell (RBC) Count 3.06 mill/uL (4.70-6.10); White Blood Cell (WBC) Count 8.5 thou/uL (4.8-10.8)
[2020-02-15 06:33] LABS: Anion Gap 16 mmol/L (10-20); BUN (Urea Nitrogen) 82 mg/dL (8.4-25.7); Calc. Creatinine Clearance 30 mL/min (70-130); Calcium 7.6 mg/dL (7.8-10.44); Carbon Dioxide 19 mmol/L (23-31); Chloride 106 mmol/L (98-107); Glucose 226 mg/dL (83-110); Potassium 4.4 mmol/L (3.5-5.1); Sodium 137 mmol/L (136-145)
[2020-02-15 07:47] LABS: Band 1 % (5-11); Crenated RBC SLIGHT = 1-5 cells (100X) (None Seen); Hemoglobin 8.8 g/dL (14.0-18.0); Lymphocytes 8 % (21-51); MDiff Complete? YES; Mean Corpuscular HGB CONC 32.3 g/dL (32.0-36.0); Mean Corpuscular Hemoglobin 29.2 pg (27.0-31.0); Mean Corpuscular Volume 90.1 fL (78.0-98.0); Mean Platelet Volume 8.6 fL (7.4-10.4); Metamyelocyte 1 % (0-0); Monocytes 4 % (0-10); Neutrophil 86 % (42-75); Ovalocytes SLIGHT = 2-5 cells (100X) (0-1/hpf); Platelet Count 251 thou/uL (130-400); Poikilocytosis SLIGHT = 6-15 cells (100X) (0-5/hpf); RBC Distribution Width 14.2 % (11.5-14.5); Red Blood Cell (RBC) Count 3.01 mill/uL (4.70-6.10); White Blood Cell (WBC) Count 8.7 thou/uL (4.8-10.8)
[2020-02-15] MEDS: cloNIDine 0.3 MG TAB PO SCH ×2 (08:27→20:49)
[2020-02-15] MEDS: Pramipexole Di-HCl 0.125 MG TAB PO SCH ×2 (08:28→20:49)
[2020-02-15] MEDS: glipiZIDE 5 MG TAB PO SCH ×2 (08:28→16:23)
[2020-02-15] MEDS: Famotidine 20 MG TAB PO SCH ×2 (08:28→20:49)
[2020-02-15] MEDS: Furosemide 20 MG TAB PO SCH (08:28)
[2020-02-15] MEDS: predniSONE 20 MG TAB PO SCH (08:28)
[2020-02-15] MEDS: Apixaban 5 MG TAB PO SCH ×2 (08:29→20:49)
[2020-02-15] MEDS: Finasteride 5 MG TAB PO SCH (08:29)
[2020-02-15] MEDS: Ferrous Sulfate 325 MG TAB PO SCH ×3 (08:29→20:49)
[2020-02-15] MEDS: Divalproex Sodium 125 mg Sprinkle Capsule PO SCH ×2 (08:32→20:54)
[2020-02-15] MEDS ORDERED: HumaLOG 300 UNITS/3 ML VIAL SC SCH (16:15)
--- NOTE | 2020-02-15 17:51 | PDOC.HOSPP ---
- Subjective Encounter Date: 02/15/20 Encounter Time: 15:00 Subjective: Patient seen in follow-up for physical deconditioning. He reports knee pain is better. - Objective Vital Signs & Weight: Vital Signs (12 hours) Temp Pulse Resp BP BP BP Pulse Ox 02/15/20 15:45 97.1 F L 51 L 20 170/90 H 96 02/15/20 10:55 97.3 F L 50 L 20 150/88 H 93 L 02/15/20 08:27 158/91 H 02/15/20 08:00 93 L 02/15/20 07:05 97.4 F L 47 L 20 158/91 H 97 Weight Weight 201 lb 11.2 oz I&O: 02/14/20 02/15/20 02/16/20 06:59 06:59 06:59 Intake Total 490 Balance 490 Result Diagrams: 02/15/20 06:00 02/15/20 06:00 Additional Labs: Accuchecks 02/15/20 02/15/20 02/15/20 15:50 10:52 05:16 POC Glucose 498 H 295 H 234 H Labs and MAR reviewed by dc Hospitalist ROS - Review of Systems Cardiovascular: denies: chest pain, palpitations, orthopnea, paroxysmal noc. dyspnea, edema, light headedness Musculoskeletal: denies: neck pain, shoulder pain, arm pain, back pain, hand pain, leg pain, foot pain - Medication Medications: Active Medications Generic Name Dose Route Start Last Admin Trade Name Freq PRN Reason Stop Dose Admin Hydrocodone Bitart/Acetaminophen 1 tab 02/09/20 23:23 02/12/20 12:23 Hydrocodone/Acetaminophen 5/325 Mg Tablet PO 1 tab Q4H PRN Administration Moderate Pain (4-6) Apixaban 5 mg 02/14/20 21:00 02/15/20 08:29 Apixaban 5 Mg Tab PO 5 mg BID ADWOA Administration Atorvastatin Calcium 80 mg 02/11/20 21:00 02/14/20 21:55 Atorvastatin Calcium 40 Mg Tab PO 80 mg HS ADWOA Administration Clonidine 0.3 mg 02/13/20 21:00 02/15/20 08:27 Clonidine 0.3 Mg Tab PO 0.3 mg BID ADWOA Administration Divalproex Sodium 125 mg 02/12/20 21:00 02/15/20 08:32 Divalproex Sodium 125 Mg Sprinkle Capsule PO 125 mg BID ADWOA Administration Famotidine 20 mg 02/12/20 21:00 02/15/20 08:28 Famotidine 20 Mg Tab PO 20 mg BID ADWOA Administration Ferrous Sulfate 325 mg 02/11/20 15:00 02/15/20 16:23 Ferrous Sulfate 325 Mg Tab PO 325 mg TID ADWOA Administration Finasteride 5 mg 02/12/20 09:00 02/15/20 08:29 Finasteride 5 Mg Tab PO 5 mg DAILY ADWOA Administration Furosemide 20 mg 02/12/20 09:00 02/15/20 08:28 Furosemide 20 Mg Tab PO 20 mg DAILY ADWOA Administration Glipizide 5 mg 02/11/20 16:30 02/15/20 16:23 Glipizide 5 Mg Tab PO 5 mg BID-AC ADWOA Administration Hydralazine HCl 10 mg 02/09/20 23:23 02/11/20 20:53 Hydralazine 20 Mg/Ml Vial SLOW IVP 10 mg Q4H PRN Administration SBP > 180 and HR < 70 Insulin Human Lispro 0 units 02/09/20 23:23 02/15/20 13:01 Humalog 300 Units/3 Ml Vial SC 4 unit .MILD SLIDING SCALE PRN Administration Mild Correctional Scale Insulin Human Lispro 0 units 02/09/20 23:23 02/14/20 21:59 Humalog 300 Units/3 Ml Vial SC 5 unit .BEDTIME SLIDING SC PRN Administration Bedtime Correctional Scale Insulin Human Lispro 10 units 02/15/20 16:15 02/15/20 16:24 Humalog 300 Units/3 Ml Vial SC 02/15/20 18:15 10 unit NOW ADWOA Administration Mirabegron 25 mg 02/12/20 09:00 02/15/20 08:27 Mirabegron Er 25 Mg Tab PO 25 mg DAILY ADWOA Administration Pramipexole Dihydrochloride 0.125 mg 02/14/20 21:00 02/15/20 08:28 Pramipexole Di-Hcl 0.125 Mg Tab PO 0.125 mg BID ADWOA Administration Prednisone 40 mg 02/13/20 08:00 02/15/20 08:28 Prednisone 20 Mg Tab PO 02/17/20 08:00 40 mg QAM-WM ADWOA Administration - Exam General Appearance: awake alert Neck: supple, symmetric Heart: RRR Respiratory: CTAB Gastrointestinal: soft, non-tender Skin: no rashes Psychiatric: normal affect, normal behavior Hosp A/P - Plan -Assessment/plan Physical deconditioning May need inpatient rehab versus long term. Right knee pain Likely secondary to prepatellar bursitis, improved. Hypertension Monitor vital signs and titrate antihypertensives as needed. Diabetes mellitus type 2 Continue Accu-Cheks and insulin sliding scale. Atrial fibrillation continue apixaban CKD Stage 4 Stable Hyperlipidemia Continue statin. Dementia Cellulitis of the left lower extremity Ruled out
[2020-02-15] MEDS: Atorvastatin Calcium 40 MG TAB PO SCH (20:49)
[2020-02-16] MEDS: HumaLOG 300 UNITS/3 ML VIAL SC PRN ×5 (02:43→21:02)
[2020-02-16 06:27] LABS: Anion Gap 15 mmol/L (10-20); BUN (Urea Nitrogen) 78 mg/dL (8.4-25.7); Calc. Creatinine Clearance 29 mL/min (70-130); Calcium 7.5 mg/dL (7.8-10.44); Carbon Dioxide 21 mmol/L (23-31); Chloride 107 mmol/L (98-107); Glucose 283 mg/dL (83-110); Potassium 4.1 mmol/L (3.5-5.1); Sodium 139 mmol/L (136-145)
[2020-02-16 06:47] LABS: Hemoglobin 8.9 g/dL (14.0-18.0); Mean Corpuscular HGB CONC 32.3 g/dL (32.0-36.0); Mean Corpuscular Volume 89.8 fL (78.0-98.0); Mean Platelet Volume 8.4 fL (7.4-10.4); Platelet Count 273 thou/uL (130-400); RBC Distribution Width 14.3 % (11.5-14.5); Red Blood Cell (RBC) Count 3.07 mill/uL (4.70-6.10); White Blood Cell (WBC) Count 9.1 thou/uL (4.8-10.8)
[2020-02-16 06:54] LABS: Elliptocytes SLIGHT = 2-5 cells (100X) (0-1/hpf); Lymphocytes 29 % (21-51); MDiff Complete? YES; Monocytes 6 % (0-10); Neutrophil 65 % (42-75)
[2020-02-16] MEDS: Famotidine 20 MG TAB PO SCH ×2 (08:49→21:01)
[2020-02-16] MEDS: Ferrous Sulfate 325 MG TAB PO SCH ×3 (08:49→21:02)
[2020-02-16] MEDS: cloNIDine 0.3 MG TAB PO SCH ×2 (08:50→21:01)
[2020-02-16] MEDS: predniSONE 20 MG TAB PO SCH (08:50)
[2020-02-16] MEDS: Pramipexole Di-HCl 0.125 MG TAB PO SCH ×2 (08:50→21:27)
[2020-02-16] MEDS: Apixaban 5 MG TAB PO SCH ×2 (08:50→21:00)
[2020-02-16] MEDS: glipiZIDE 5 MG TAB PO SCH ×2 (08:52→15:35)
[2020-02-16] MEDS: Finasteride 5 MG TAB PO SCH (08:52)
[2020-02-16] MEDS: Furosemide 20 MG TAB PO SCH (08:52)
[2020-02-16] MEDS: Divalproex Sodium 125 mg Sprinkle Capsule PO SCH ×2 (11:58→21:01)
--- NOTE | 2020-02-16 15:25 | PDOC.HOSPP ---
- Subjective Encounter Date: 02/16/20 Encounter Time: 12:00 Subjective: Patient seen for follow-up regarding physical deconditioning. Denies chest pain or shortness of breath. - Objective Vital Signs & Weight: Vital Signs (12 hours) Temp Pulse Resp BP Pulse Ox 02/16/20 12:00 97.4 F L 53 L 18 151/93 H 93 L 02/16/20 08:30 95 02/16/20 08:00 97.3 F L 50 L 18 166/99 H 95 Weight Weight 201 lb 11.2 oz Result Diagrams: 02/16/20 05:57 02/16/20 05:57 Additional Labs: Accuchecks 02/16/20 02/16/20 02/16/20 11:33 05:41 02:15 POC Glucose 232 H 298 H 352 H 02/15/20 02/15/20 20:48 15:50 POC Glucose 427 H 498 H I reviewed patient's labs and MAR Hospitalist ROS - Review of Systems Gastrointestinal: denies: nausea, vomiting, abdominal pain, diarrhea, constipation, melena, hematochezia Genitourinary: denies: dysuria, frequency, incontinence, hematuria, retention - Medication Medications: Active Medications Generic Name Dose Route Start Last Admin Trade Name Freq PRN Reason Stop Dose Admin Hydrocodone Bitart/Acetaminophen 1 tab 02/09/20 23:23 02/12/20 12:23 Hydrocodone/Acetaminophen 5/325 Mg Tablet PO 1 tab Q4H PRN Administration Moderate Pain (4-6) Apixaban 5 mg 02/14/20 21:00 02/16/20 08:50 Apixaban 5 Mg Tab PO 5 mg BID ADWOA Administration Atorvastatin Calcium 80 mg 02/11/20 21:00 02/15/20 20:49 Atorvastatin Calcium 40 Mg Tab PO 80 mg HS ADWOA Administration Clonidine 0.3 mg 02/13/20 21:00 02/16/20 08:50 Clonidine 0.3 Mg Tab PO 0.3 mg BID ADWOA Administration Divalproex Sodium 125 mg 02/12/20 21:00 02/16/20 11:58 Divalproex Sodium 125 Mg Sprinkle Capsule PO 125 mg BID ADWOA Administration Famotidine 20 mg 02/12/20 21:00 02/16/20 08:49 Famotidine 20 Mg Tab PO 20 mg BID ADWOA Administration Ferrous Sulfate 325 mg 02/11/20 15:00 02/16/20 08:49 Ferrous Sulfate 325 Mg Tab PO 325 mg TID ADWOA Administration Finasteride 5 mg 02/12/20 09:00 02/16/20 08:52 Finasteride 5 Mg Tab PO 5 mg DAILY ADWOA Administration Furosemide 20 mg 02/12/20 09:00 02/16/20 08:52 Furosemide 20 Mg Tab PO 20 mg DAILY ADWOA Administration Glipizide 5 mg 02/11/20 16:30 02/16/20 08:52 Glipizide 5 Mg Tab PO 5 mg BID-AC ADWOA Administration Hydralazine HCl 10 mg 02/09/20 23:23 02/11/20 20:53 Hydralazine 20 Mg/Ml Vial SLOW IVP 10 mg Q4H PRN Administration SBP > 180 and HR < 70 Insulin Human Lispro 0 units 02/09/20 23:23 02/16/20 11:58 Humalog 300 Units/3 Ml Vial SC 3 unit .MILD SLIDING SCALE PRN Administration Mild Correctional Scale Insulin Human Lispro 0 units 02/09/20 23:23 02/16/20 02:43 Humalog 300 Units/3 Ml Vial SC 5 unit .BEDTIME SLIDING SC PRN Administration Bedtime Correctional Scale Mirabegron 25 mg 02/12/20 09:00 02/16/20 08:50 Mirabegron Er 25 Mg Tab PO 25 mg DAILY ADWOA Administration Pramipexole Dihydrochloride 0.125 mg 02/14/20 21:00 02/16/20 08:50 Pramipexole Di-Hcl 0.125 Mg Tab PO 0.125 mg BID [facility] Administration Prednisone 40 mg 02/13/20 08:00 02/16/20 08:50 Prednisone 20 Mg Tab PO 02/17/20 08:00 40 mg QAM-WM ADWOA Administration - Exam General Appearance: awake alert Eye: anicteric sclera ENT: moist mucosa Neck: supple Heart: RRR Respiratory: CTAB Gastrointestinal: soft, non-tender Skin: no rashes Psychiatric: normal affect, normal behavior Hosp A/P - Plan -Assessment/plan Physical deconditioning Awaiting the authorization for inpatient rehab versus [facility]. Right knee pain Likely secondary to prepatellar bursitis, improved. Hypertension Stable Diabetes mellitus type 2 Stable Atrial fibrillation continue apixaban CKD Stage 4 Stable Hyperlipidemia Continue statin. Dementia Cellulitis of the left lower extremity Ruled out
[2020-02-16 16:16] LABS: ANA Symphony (Qualitative) Negative (Negative); ANA Symphony (Quantitative) 0.4 Ratio (< 0.7 Negative); dsDNA IgG Antibody 1.8 IU/mL (<10 Negative)
[2020-02-16 17:30] LABS: EliA RAS New Method **** NEW METHOD ****; Rheumatoid Factor IgM Antibody Less than 0.5 IU/mL (<3.5 Negative)
[2020-02-16] MEDS: Atorvastatin Calcium 40 MG TAB PO SCH (21:00)
[2020-02-17] MEDS: HumaLOG 300 UNITS/3 ML VIAL SC PRN ×4 (05:16→20:42)
[2020-02-17] MEDS ORDERED: hydrALAZINE 25 MG TAB PO PRN (05:55)
[2020-02-17 07:17] LABS: Anion Gap 14 mmol/L (10-20); BUN (Urea Nitrogen) 76 mg/dL (8.4-25.7); Calc. Creatinine Clearance 31 mL/min (70-130); Calcium 7.5 mg/dL (7.8-10.44); Carbon Dioxide 23 mmol/L (23-31); Chloride 105 mmol/L (98-107); Glucose 273 mg/dL (83-110); Sodium 138 mmol/L (136-145)
[2020-02-17 07:18] LABS: Hemoglobin 9.1 g/dL (14.0-18.0); Mean Corpuscular HGB CONC 31.2 g/dL (32.0-36.0); Mean Corpuscular Hemoglobin 28.2 pg (27.0-31.0); Mean Corpuscular Volume 90.4 fL (78.0-98.0); Mean Platelet Volume 8.5 fL (7.4-10.4); Platelet Count 304 thou/uL (130-400); RBC Distribution Width 14.4 % (11.5-14.5); Red Blood Cell (RBC) Count 3.24 mill/uL (4.70-6.10); White Blood Cell (WBC) Count 8.7 thou/uL (4.8-10.8)
[2020-02-17] MEDS: predniSONE 20 MG TAB PO SCH (07:46)
[2020-02-17] MEDS: glipiZIDE 5 MG TAB PO SCH ×2 (07:46→15:35)
[2020-02-17] MEDS: Apixaban 5 MG TAB PO SCH ×2 (07:46→20:42)
[2020-02-17] MEDS: cloNIDine 0.3 MG TAB PO SCH ×2 (07:46→20:41)
[2020-02-17] MEDS: Famotidine 20 MG TAB PO SCH ×2 (07:46→20:41)
[2020-02-17] MEDS: Furosemide 20 MG TAB PO SCH (07:46)
[2020-02-17] MEDS: Ferrous Sulfate 325 MG TAB PO SCH ×3 (07:46→20:41)
[2020-02-17] MEDS: Finasteride 5 MG TAB PO SCH (07:46)
[2020-02-17 07:58] LABS: Lymphocytes 36 % (21-51); MDiff Complete? YES; Monocytes 6 % (0-10); Neutrophil 58 % (42-75)
[2020-02-17] MEDS: Pramipexole Di-HCl 0.125 MG TAB PO SCH ×2 (08:45→20:41)
[2020-02-17] MEDS: Divalproex Sodium 125 mg Sprinkle Capsule PO SCH ×2 (08:45→20:47)
--- NOTE | 2020-02-17 09:23 | PDOC.HOSPP ---
- Subjective Encounter Date: 02/17/20 Encounter Time: 12:00 Subjective: Patient with decreased swelling and redness in extremities. No complaints today. - Objective Vital Signs & Weight: Vital Signs (12 hours) Temp Pulse Resp BP BP BP Pulse Ox 02/17/20 07:46 169/98 H 02/17/20 07:34 97.5 F L 59 L 18 169/98 H 95 02/17/20 06:32 56 L 185/113 H 02/17/20 04:30 97.8 F 56 L 18 185/113 H 96 02/17/20 00:30 97.5 F L 60 18 163/94 H 95 Weight Weight 201 lb 11.2 oz I&O: 02/16/20 02/17/20 02/18/20 06:59 06:59 06:59 Intake Total 480 Balance 480 Result Diagrams: 02/17/20 06:10 02/17/20 06:10 Additional Labs: Accuchecks 02/17/20 02/16/20 02/16/20 04:45 19:27 16:44 POC Glucose 310 H 431 H 356 H 02/16/20 11:33 POC Glucose 232 H Hospitalist ROS - Review of Systems Constitutional: denies: fever, chills Respiratory: denies: cough, shortness of breath Cardiovascular: denies: chest pain, palpitations Gastrointestinal: denies: nausea, vomiting, abdominal pain - Medication Medications: Active Medications Generic Name Dose Route Start Last Admin Trade Name Freq PRN Reason Stop Dose Admin Hydrocodone Bitart/Acetaminophen 1 tab 02/09/20 23:23 02/12/20 12:23 Hydrocodone/Acetaminophen 5/325 Mg Tablet PO 1 tab Q4H PRN Administration Moderate Pain (4-6) Apixaban 5 mg 02/14/20 21:00 02/17/20 07:46 Apixaban 5 Mg Tab PO 5 mg BID ADWOA Administration Atorvastatin Calcium 80 mg 02/11/20 21:00 02/16/20 21:00 Atorvastatin Calcium 40 Mg Tab PO 80 mg HS ADWOA Administration Clonidine 0.3 mg 02/13/20 21:00 02/17/20 07:46 Clonidine 0.3 Mg Tab PO 0.3 mg BID ADWOA Administration Divalproex Sodium 125 mg 02/12/20 21:00 02/17/20 08:45 Divalproex Sodium 125 Mg Sprinkle Capsule PO 125 mg BID ADWOA Administration Famotidine 20 mg 02/12/20 21:00 02/17/20 07:46 Famotidine 20 Mg Tab PO 20 mg BID ADWOA Administration Ferrous Sulfate 325 mg 02/11/20 15:00 02/17/20 07:46 Ferrous Sulfate 325 Mg Tab PO 325 mg TID ADWOA Administration Finasteride 5 mg 02/12/20 09:00 02/17/20 07:46 Finasteride 5 Mg Tab PO 5 mg DAILY ADWOA Administration Furosemide 20 mg 02/12/20 09:00 02/17/20 07:46 Furosemide 20 Mg Tab PO 20 mg DAILY ADWOA Administration Glipizide 5 mg 02/11/20 16:30 02/17/20 07:46 Glipizide 5 Mg Tab PO 5 mg BID-AC ADWOA Administration Hydralazine HCl 10 mg 02/09/20 23:23 02/11/20 20:53 Hydralazine 20 Mg/Ml Vial SLOW IVP 10 mg Q4H PRN Administration SBP > 180 and HR < 70 Hydralazine HCl 25 mg 02/17/20 05:55 02/17/20 06:32 Hydralazine 25 Mg Tab PO 25 mg Q6H PRN Administration SBP>180 Insulin Human Lispro 0 units 02/09/20 23:23 02/17/20 05:16 Humalog 300 Units/3 Ml Vial SC 5 unit .MILD SLIDING SCALE PRN Administration Mild Correctional Scale Insulin Human Lispro 0 units 02/09/20 23:23 02/16/20 21:02 Humalog 300 Units/3 Ml Vial SC 5 unit .BEDTIME SLIDING SC PRN Administration Bedtime Correctional Scale Mirabegron 25 mg 02/12/20 09:00 02/17/20 08:45 Mirabegron Er 25 Mg Tab PO 25 mg DAILY ADWOA Administration Pramipexole Dihydrochloride 0.125 mg 02/14/20 21:00 02/17/20 08:45 Pramipexole Di-Hcl 0.125 Mg Tab PO 0.125 mg BID ADWOA Administration - Exam General Appearance: NAD, awake alert ENT: moist mucosa Heart: RRR, no murmur, no gallops, no rubs Respiratory: CTAB, no wheezes, no rales, no ronchi Gastrointestinal: soft, non-tender, non-distended, normal bowel sounds Extremities: no edema Psychiatric: normal affect, normal behavior Hosp A/P - Plan Physical deconditioning Awaiting the authorization for inpatient rehab versus jail. [facility] on [facility]17/2020. Right knee pain Likely secondary to prepatellar bursitis, improved. Hypertension Stable Diabetes mellitus type 2 Stable Atrial fibrillation continue apixaban CKD Stage 4 Stable Hyperlipidemia Continue statin. Dementia Cellulitis of the left lower extremity Ruled out
[2020-02-17] MEDS: Atorvastatin Calcium 40 MG TAB PO SCH (20:41)
[2020-02-17] MEDS: Insulin Glargine 20 UNITS in Pre-Filled Syringe 1 EACH SC SCH (20:42)
[2020-02-18] MEDS: HumaLOG 300 UNITS/3 ML VIAL SC PRN ×4 (05:36→20:57)
[2020-02-18] MEDS: Ferrous Sulfate 325 MG TAB PO SCH ×3 (09:23→20:56)
[2020-02-18] MEDS: Divalproex Sodium 125 mg Sprinkle Capsule PO SCH ×2 (09:23→20:55)
[2020-02-18] MEDS: cloNIDine 0.3 MG TAB PO SCH ×2 (09:23→20:55)
[2020-02-18] MEDS: Famotidine 20 MG TAB PO SCH ×2 (09:24→20:55)
[2020-02-18] MEDS: Pramipexole Di-HCl 0.125 MG TAB PO SCH ×2 (09:24→20:55)
[2020-02-18] MEDS: glipiZIDE 5 MG TAB PO SCH ×2 (09:24→17:13)
[2020-02-18] MEDS: Furosemide 20 MG TAB PO SCH (09:24)
[2020-02-18] MEDS: Apixaban 5 MG TAB PO SCH ×2 (09:24→20:56)
[2020-02-18] MEDS: Finasteride 5 MG TAB PO SCH (09:27)
--- NOTE | 2020-02-18 18:26 | PDOC.HOSPP ---
- Subjective Encounter Date: 02/18/20 Encounter Time: 10:30 Subjective: Patient seen for follow-up regarding physical deconditioning. Denies any complaints. - Objective Vital Signs & Weight: Vital Signs (12 hours) Temp Pulse Resp BP Pulse Ox 02/18/20 08:00 95 02/18/20 07:17 97.4 F L 57 L 18 164/89 H 95 Weight Weight 201 lb 11.2 oz I&O: 02/17/20 02/18/20 02/19/20 06:59 06:59 06:59 Intake Total 480 480 Balance 480 480 Result Diagrams: 02/17/20 06:10 02/17/20 06:10 Additional Labs: Accuchecks 02/18/20 02/18/20 02/18/20 15:31 10:53 04:43 POC Glucose 291 H 251 H 213 H 02/17/20 20:35 POC Glucose 397 H Labs and MAR reviewed by nc Hospitalist ROS - Medication Medications: Active Medications Generic Name Dose Route Start Last Admin Trade Name Freq PRN Reason Stop Dose Admin Hydrocodone Bitart/Acetaminophen 1 tab 02/09/20 23:23 02/12/20 12:23 Hydrocodone/Acetaminophen 5/325 Mg Tablet PO 1 tab Q4H PRN Administration Moderate Pain (4-6) Apixaban 5 mg 02/14/20 21:00 02/18/20 09:24 Apixaban 5 Mg Tab PO 5 mg BID ADWOA Administration Atorvastatin Calcium 80 mg 02/11/20 21:00 02/17/20 20:41 Atorvastatin Calcium 40 Mg Tab PO 80 mg HS ADWOA Administration Clonidine 0.3 mg 02/13/20 21:00 02/18/20 09:23 Clonidine 0.3 Mg Tab PO 0.3 mg BID ADWOA Administration Divalproex Sodium 125 mg 02/12/20 21:00 02/18/20 09:23 Divalproex Sodium 125 Mg Sprinkle Capsule PO 125 mg BID ADWOA Administration Famotidine 20 mg 02/12/20 21:00 02/18/20 09:24 Famotidine 20 Mg Tab PO 20 mg BID ADWOA Administration Ferrous Sulfate 325 mg 02/11/20 15:00 02/18/20 17:13 Ferrous Sulfate 325 Mg Tab PO 325 mg TID ADWOA Administration Finasteride 5 mg 02/12/20 09:00 01/05/21 09:27 Finasteride 5 Mg Tab PO 5 mg DAILY ADWOA Administration Furosemide 20 mg 02/12/20 09:00 02/18/20 09:24 Furosemide 20 Mg Tab PO 20 mg DAILY ADWOA Administration Glipizide 5 mg 02/11/20 16:30 02/18/20 17:13 Glipizide 5 Mg Tab PO 5 mg BID-AC ADWOA Administration Hydralazine HCl 10 mg 02/09/20 23:23 02/11/20 20:53 Hydralazine 20 Mg/Ml Vial SLOW IVP 10 mg Q4H PRN Administration SBP > 180 and HR < 70 Hydralazine HCl 25 mg 02/17/20 05:55 02/17/20 06:32 Hydralazine 25 Mg Tab PO 25 mg Q6H PRN Administration SBP>180 Insulin Glargine 20 units/ 0.2 mls @ 0 mls/hr 02/17/20 21:00 02/17/20 20:42 Miscellaneous Medication SC 0.2 mls HS ADWOA Administration Insulin Human Lispro 0 units 02/09/20 23:23 02/17/20 20:42 Humalog 300 Units/3 Ml Vial SC 5 unit .BEDTIME SLIDING SC PRN Administration Bedtime Correctional Scale Insulin Human Lispro 0 units 02/17/20 16:44 02/18/20 17:14 Humalog 300 Units/3 Ml Vial SC 6 unit .MODERATE SLIDING SC PRN Administration Moderate Correctional Scale Mirabegron 25 mg 02/12/20 09:00 02/18/20 09:23 Mirabegron Er 25 Mg Tab PO 25 mg DAILY [facility]WOA Administration Pramipexole Dihydrochloride 0.125 mg 02/14/20 21:00 02/18/20 09:24 Pramipexole Di-Hcl 0.125 Mg Tab PO 0.125 mg BID ADWOA Administration Hosp A/P - Plan -Assessment/plan Physical deconditioning Awaiting the authorization for inpatient rehab versus long-term. Right knee pain Likely secondary to prepatellar bursitis, improved. Hypertension Stable Diabetes mellitus type 2 Stable Atrial fibrillation continue apixaban CKD Stage 4 Stable Hyperlipidemia Continue statin. Dementia Cellulitis of the left lower extremity Ruled out
[2020-02-18] MEDS: Insulin Glargine 20 UNITS in Pre-Filled Syringe 1 EACH SC SCH (20:56)
[2020-02-18] MEDS: Atorvastatin Calcium 40 MG TAB PO SCH (20:56)
[2020-02-19] MEDS: HumaLOG 300 UNITS/3 ML VIAL SC PRN ×3 (06:12→16:45)
[2020-02-19 08:09] VITALS: TEMP 97.5
[2020-02-19] MEDS: Finasteride 5 MG TAB PO SCH (08:39)
[2020-02-19] MEDS: Apixaban 5 MG TAB PO SCH (08:39)
[2020-02-19] MEDS: Furosemide 20 MG TAB PO SCH (08:39)
[2020-02-19] MEDS: glipiZIDE 5 MG TAB PO SCH ×2 (08:40→16:43)
[2020-02-19] MEDS: Ferrous Sulfate 325 MG TAB PO SCH ×2 (08:40→14:45)
[2020-02-19] MEDS: cloNIDine 0.3 MG TAB PO SCH (08:40)
[2020-02-19] MEDS: Pramipexole Di-HCl 0.125 MG TAB PO SCH (08:41)
[2020-02-19] MEDS: Divalproex Sodium 125 mg Sprinkle Capsule PO SCH (08:52)
[2020-02-19 08:54] VITALS: BP 165/94
[2020-02-19] MEDS ORDERED: Famotidine 20 MG TAB PO SCH (09:00)
--- NOTE | 2020-02-19 13:17 | RAD ---
Chest one view HISTORY: Dyspnea. Wheezing. COMPARISON: 07/11/2016. FINDINGS: Cardiac silhouette is magnified by projection. Pulmonary vasculature are unremarkable. Mediastinum is midline. Vertically oriented tubing over the right side of the chest has the appearanc e of a ventriculoperitoneal shunt. Calcified granulomata are consistent with healed granulomatous disease. Ill-defined opacity at the ri ght posterior medial lung base partially obscures the right diaphragm. Left diaphragm also obscured by opacity at the left base. No evidence of pneumothorax. IMPRESSION : Bibasilar infiltrates. Correlate for bilateral lower lobe pneumonia/pneumonitis.
--- NOTE | 2020-02-19 13:53 | PDOC.DS.DS ---
Provider - Provider Date of Admission: 02/09/20 17:00 Date of Discharge: 02/19/20 Admitting Provider: Ivy Beal MD Consultations: Orthopedics (Ms. Hughesdano), Other (CV surgery: Dr. Cornejo) Primary Care Physician: Stephanie Hankins MD Course - Hospital Course Hospital Course: Discharge diagnosis: 1. Physical deconditioning 2. Peripheral vascular disease 3. Cellulitis ruled out 4. Pneumonia 5. Gout flare Hospital course: Patient is a pleasant 74-year-old gentleman who was admitted to the hospital on February 09, 2020 for suspected cellulitis of the right lower extremity. Arterial Dopplers of bilateral lower extremities suggested possibility of significant stenosis below the level of the mid femoral artery of the left leg. Patient was seen by CV surgeon, it was felt that patient did not need any f urther vascular work-up. Patient was also seen by orthopedic surgery service for right knee erythema and pain. He was started on colchicine for suspected gout, with improvement in his symptoms. Patient was also physically deconditioned. He was seen by therapy services and was recommended inpatient rehab. Case management obtained approval from inpatient rehab, and patient is being discharged to the inpatient rehab. On the day of discharge, he had slightly labored breathing but normal vital signs. Chest x-ray suggested bibasilar pneumonia, patient is being started on antibiotics at the time of discharge. Many thanks for allowing me to participate in your patient's care. Please feel free to contact me with any questions or concerns. Discharge destination: Inpatient rehab Total amount of time spent coordinating this discharge: 32 minutes Resuscitation Status: 02/09/20 21:38 Resuscitation Status Routine Co-Sign Provider: Resuscitation Status: FULL: Full Resuscitation Discussed with: pt and - Labs Lab Results: 02/17/20 06:10 02/17/20 06:10 Microbiology - Entire Visit 02/09/20 13:40 Venous blood - Right Arm Blood Culture - Final NO GROWTH IN 5 DAYS 02/09/20 12:56 Venous blood - Right Arm Blood Culture - Final NO GROWTH IN 5 DAYS - Physical Exam Vitals: Vital Signs (12 hours) Temp Pulse Resp BP BP Pulse Ox 02/19/20 08:40 165/94 H 02/19/20 08:00 97.5 F L 64 22 H 153/80 H 94 L Weight Weight 201 lb 11.2 oz Physical Exam: The patient was seen and examined on the day of discharge. Patient denies chest pain or shortness of breath. Vital signs are stable. S1 and S2 are heard. Lungs are clear to auscultation bilaterally. Plan - Discharge Medications Prescriptions: Cefdinir [Omnicef] 300 mg PO BID #20 cap Home Medications: Medication Instructions Recorded Confirmed Type Apixaban [Eliquis] 5 mg PO BID 02/10/20 02/10/20 History Atorvastatin Calcium 80 mg PO HS 02/10/20 02/10/20 History Divalproex Sodium [Depakote] 125 mg PO BID 02/10/20 02/10/20 History Ferrous Sulfate 325 mg PO TID 02/10/20 02/10/20 History Finasteride 5 mg PO DAILY 02/10/20 02/10/20 History Furosemide 20 mg PO DAILY 02/10/20 02/10/20 History Mirabegron [Myrbetriq] 25 mg PO DAILY 02/10/20 02/10/20 History glipiZIDE [Glipizide] 5 mg PO BID 02/10/20 02/10/20 History Cefdinir [Omnicef] 300 mg PO BID #20 cap 02/19/20 Rx Insulin Glargine [Lantus Vial] 20 units SC HS vial 02/19/20 Rx Pramipexole Di-HCl [Mirapex] 0.125 mg PO BID tab 02/19/20 Rx cloNIDine [Catapres] 0.3 mg PO BID tab 02/19/20 Rx Allergies: amlodipine Allergy (Verified 02/10/20 00:48) PER ER NOTES - Follow up Plan Referrals: Stephanie Hankins MD [Primary Care Provider] - 7 Days Disposition: HOME Quality - Care Measures CORE MEASURES:: N/A
[2020-02-19] MEDS ORDERED: Cefdinir 300 MG CAP PO SCH (14:00)
--- NOTE | 2020-02-21 04:40 | PQF ---
Dear :Irwin Amato Date 02/21/2020 Please exercise your independent, professional judgment in responding to the clarification form. Clinical indicators are provided on the bottom of this form for your review Can you please further clarify if Gout flare is Present on admission or not? Diagnosis: Gout flare Present on Admission (POA): [ ] Yes [x ] No [ ] Unable to determine Physician Signature: Date/Time: For continuity of documentation, please document condition throughout progress notes and discharge summary. Thank You. To be completed by CDI/Coding staff for physician review: Present Clinical Indicators - Signs / Symptoms / Labs Results and Location in Medical Record [ x ] Increasing pain in left foot and lower extremity over the past 2 to 3 days H and P pg.1 02/08 [ x ] Left lower extremity does not appear to be cellulitis Hospitalist PN pg.3 02/08 [ x ] Left foot pain and toe discoloration Consult 02/10 [ x ] Complains of pain and swelling in the right knee Hospitalist PN 02/10 pg.1 [ x ] Uric acid 7.3H Laboratory 02/10 [ x ] He develop some localized erythema to the anterior aspect of right knee Consult 02/11 pg.1 [ x ] Right knee pain 2/2 prepatellar bursitis, improved Hospitalist PN pg.4 02/16 [ x ] Gout flare DS pg.1 [ x ] Feb 09, 2020 suspected cellulitis right lower extremities DS pg.1 [ x ] Suspected gout DS pg.1 Present Risk Factors Results and Location in Medical Record [ x ] 74 years old H and P pg.1 [ x ] CKD IV H and P pg.1 [ x ] DM H and P pg.1 [ x ] HLD H and P pg.1 [ x ] PVD DS pg.1 Present Treatments Results and Location in Medical Record [ x ] IV Fluids MAR [ x ] Colchicine 0.3mg PO MAR [ x ] Clindamycin 900mg IV MAR [ x ] Tylenol 650mg PO MAR [employer] Technician Signature: Tera Loera Phone #: [phone] Date 02/21/2020 This is a permanent part of the Medical Record [facility]
== END 2020-02-19 18:46 | DRG 555 ==
LOC: ERS 11:15 → T4-A 17:00
PROVIDERS: ADMIT Family Medicine; ATTEND Internal Medicine
DX: M79.662 Pain in left lower leg (principal); J18.9 Pneumonia, unspecified organism; G91.2 (Idiopathic) normal pressure hydrocephalus; N18.4 Chronic kidney disease, stage 4 (severe); M10.061 Idiopathic gout, right knee; Z20.822 Contact with and (suspected) exposure to COVID-19; M79.672 Pain in left foot; I48.91 Unspecified atrial fibrillation; E78.5 Hyperlipidemia, unspecified; I12.9 Hypertensive chronic kidney disease with stage 1 through stage 4 chronic kidney disease, or unspecified chronic kidney disease; E11.51 Type 2 diabetes mellitus with diabetic peripheral angiopathy without gangrene; E11.22 Type 2 diabetes mellitus with diabetic chronic kidney disease; D63.1 Anemia in chronic kidney disease; F03.90 Unspecified dementia, unspecified severity, without behavioral disturbance, psychotic disturbance, mood disturbance, and anxiety; L53.8 Other specified erythematous conditions; E11.65 Type 2 diabetes mellitus with hyperglycemia; Z88.8 Allergy status to other drugs, medicaments and biological substances; Z79.84 Long term (current) use of oral hypoglycemic drugs; Z79.01 Long term (current) use of anticoagulants; Z79.899 Other long term (current) drug therapy; Z86.73 Personal history of transient ischemic attack (TIA), and cerebral infarction without residual deficits
CPT/HCPCS: 36415; 36416; 71045; 80048; 80053; 83520; 84550; 85025; 85652; 86038; 86140; 86225; 87040; 87635; 93923; 96365; J0360; J1630; J1815; J3490; J7512; U0003